=== PATIENT | female | born 1965 | race Caucasian/White ===

== ENCOUNTER 2018-07-23 13:50 | Emergency (ER) | payer SELFPAY ==
--- NOTE | 2018-07-23 15:16 | RAD ---
RIGHT HAND 4 VIEWS: Date: 07/23/18 HISTORY: Right hand pain and swelling. FINDINGS: Joint spaces are preserved. No acute fracture, dislocation, or aggressive osseous erosions. Minimal o steophytosis. IMPRESSION: No acute osseous abnormalities are demonstrated. POS: [facility]
== END 2018-07-23 14:54 | disposition home or self-care (01) ==
LOC: ERS 13:50
DX: M65.4 Radial styloid tenosynovitis [de Quervain] (principal); E11.9 Type 2 diabetes mellitus without complications; E78.5 Hyperlipidemia, unspecified; I10 Essential (primary) hypertension; J45.909 Unspecified asthma, uncomplicated; F41.9 Anxiety disorder, unspecified; F32.9 Major depressive disorder, single episode, unspecified; Z79.4 Long term (current) use of insulin; Z79.899 Other long term (current) drug therapy

== ENCOUNTER 2020-03-11 19:00 | Outpatient (CLI) | payer BC | END 2020-03-11 19:01 | disposition home or self-care (01) | LOC: SLEEPLAB 19:00 | PROVIDERS: ATTEND Family Medicine | DX: G47.33 Obstructive sleep apnea (adult) (pediatric) (principal); I10 Essential (primary) hypertension; E11.9 Type 2 diabetes mellitus without complications | CPT/HCPCS: 95811 ==

== ENCOUNTER 2020-05-15 08:00 | Outpatient (CLI) | payer BC, OTHER ==
[2020-05-15 16:25] LABS: #Lymphocytes 2.3 thou/uL (1.20-3.40); #Monocytes 0.4 thou/uL (0.11-0.59); #Neutrophils 4.2 thou/uL (1.40-6.50); %Basophils 0.5 % (0.0-1.0); %Eosinophils 0.7 % (0.0-10.0); %Monocytes 6.3 % (0.0-10.0); %Neutrophils 59.5 % (42.0-75.0); Mean Corpuscular HGB CONC 34.6 g/dL (32.0-36.0); Mean Corpuscular Hemoglobin 30.5 pg (27.0-31.0); Mean Corpuscular Volume 88.1 fL (78.0-98.0); Mean Platelet Volume 7.5 fL (7.4-10.4); Platelet Count 151 thou/uL (130-400); RBC Distribution Width 12.2 % (11.5-14.5); Red Blood Cell (RBC) Count 4.28 mill/uL (4.20-5.40); White Blood Cell (WBC) Count 7.1 thou/uL (4.8-10.8)
[2020-05-15 16:47] LABS: Anion Gap 14 mmol/L (10-20); BUN (Urea Nitrogen) 13 mg/dL (9.8-20.1); Calc. Creatinine Clearance 0 mL/min (70-130); Calcium 9.2 mg/dL (7.8-10.44); Carbon Dioxide 27 mmol/L (22-29); Chloride 104 mmol/L (98-107); Estimated GFR-MDRD Greater than 90; Glucose 101 mg/dL (70-105); Potassium 4.1 mmol/L (3.5-5.1); Sodium 141 mmol/L (136-145)
[2020-05-16 14:15] LABS: SARS-CoV-2 MS2 Positive; SARS-CoV-2 N Gene Negative; SARS-CoV-2 S Gene Negative; SARS-CoV-2 by NAA Not Detected (NotDetected); SARS-CoV-2 orf1ab Negative
== END 2020-05-15 08:01 | disposition home or self-care (01) ==
LOC: LABBT 08:00
PROVIDERS: ATTEND Surgery
DX: Z01.812 Encounter for preprocedural laboratory examination (principal); Z11.59 Encounter for screening for other viral diseases; K42.9 Umbilical hernia without obstruction or gangrene
CPT/HCPCS: 80048; 85025; 87635; U0003

== ENCOUNTER 2022-03-30 14:22 | Emergency (ER) | payer BC ==
[~2022-03-30 14:22] MED LIST: ISOVUE-370 76%-LOCM 1 ML ONE
[2022-03-30 15:33] LABS: #Lymphocytes 2.9 thou/uL (1.20-3.40); #Monocytes 0.6 thou/uL (0.11-0.59); %Basophils 0.4 % (0.0-1.0); %Eosinophils 0.4 % (0.0-10.0); %Lymphocytes 33.7 % (21.0-51.0); %Neutrophils 58.6 % (42.0-75.0); Mean Corpuscular Hemoglobin 31.7 pg (27.0-31.0); Mean Corpuscular Volume 90.5 fL (78.0-98.0); Mean Platelet Volume 7.3 fL (7.4-10.4); Platelet Count 180 thou/uL (130-400); RBC Distribution Width 13.5 % (11.5-14.5); Red Blood Cell (RBC) Count 3.78 mill/uL (4.20-5.40); White Blood Cell (WBC) Count 8.6 thou/uL (4.8-10.8)
[2022-03-30 15:52] LABS: ALT (SGPT) 21 U/L (8-55); AST (SGOT) 13 U/L (5-34); Albumin 4.1 g/dL (3.5-5.0); Alkaline Phosphatase 70 U/L (40-110); Anion Gap 13 mmol/L (10-20); BUN (Urea Nitrogen) 14 mg/dL (9.8-20.1); Bilirubin, Total 0.7 mg/dL (0.2-1.2); Calc. Creatinine Clearance 0 mL/min (70-130); Calcium 9.5 mg/dL (7.8-10.44); Carbon Dioxide 26 mmol/L (22-29); Chloride 106 mmol/L (98-107); Globulin 2.7 g/dL (2.4-3.5); Glucose 125 mg/dL (70-105); Lipase 32 U/L (8-78); Potassium 3.4 mmol/L (3.5-5.1); Protein, Total 6.8 g/dL (6.0-8.3); Sodium 142 mmol/L (136-145)
[2022-03-30] MEDS ORDERED: Pantoprazole 40 MG VIAL ONE (17:04)
[2022-03-30] MEDS ORDERED: Famotidine 20 MG TAB ONE ×2 (17:04→17:14)
== END 2022-03-30 19:00 | disposition home or self-care (01) ==
LOC: ERS 14:22
DX: R13.10 Dysphagia, unspecified (principal); R10.13 Epigastric pain; R00.1 Bradycardia, unspecified; I10 Essential (primary) hypertension; E11.9 Type 2 diabetes mellitus without complications; E78.5 Hyperlipidemia, unspecified; J45.909 Unspecified asthma, uncomplicated; G47.30 Sleep apnea, unspecified; Z79.84 Long term (current) use of oral hypoglycemic drugs; Z79.899 Other long term (current) drug therapy
CPT/HCPCS: 36415; 71045; 74177; 80053; 83690; 84484; 85025; 93005; 96374; C9113; Q9966

== ENCOUNTER 2022-11-25 12:06 | Emergency (ER) | payer BC ==
[2022-11-25 12:39] LABS: #Eosinphils 0.1 thou/uL (0.0-0.7); #Lymphocytes 1.8 thou/uL (1.20-3.40); #Monocytes 0.4 thou/uL (0.11-0.59); #Neutrophils 3.7 thou/uL (1.40-6.50); %Basophils 0.5 % (0.0-1.0); %Eosinophils 1.7 % (0.0-10.0); %Lymphocytes 30.6 % (21.0-51.0); %Monocytes 6.1 % (0.0-10.0); %Neutrophils 61.1 % (42.0-75.0); Hemoglobin 12.6 g/dL (12.0-16.0); Mean Corpuscular HGB CONC 34.4 g/dL (32.0-36.0); Mean Corpuscular Hemoglobin 30.4 pg (27.0-31.0); Mean Corpuscular Volume 88.5 fl (78.0-98.0); Mean Platelet Volume 7.6 fL (7.4-10.4); Platelet Count 182 10x3/uL (130-400); RBC Distribution Width 12.9 % (11.5-14.5); Red Blood Cell (RBC) Count 4.16 mill/uL (4.20-5.40)
[2022-11-25 12:54] LABS: ALT (SGPT) 19 U/L (8-55); AST (SGOT) 15 U/L (5-34); Albumin 4.2 g/dL (3.5-5.0); Alkaline Phosphatase 75 U/L (40-110); Anion Gap 15 mmol/L (10-20); BUN (Urea Nitrogen) 11 mg/dL (9.8-20.1); Calc. Creatinine Clearance 0 mL/min (70-130); Calcium 9.5 mg/dL (7.8-10.44); Carbon Dioxide 28 mmol/L (22-29); Chloride 101 mmol/L (98-107); Estimated GFR 92; Glucose 208 mg/dL (70-105); Lipase 35 U/L (8-78); Potassium 3.6 mmol/L (3.5-5.1); Protein, Total 7.2 g/dL (6.0-8.3); Sodium 140 mmol/L (136-145)
[2022-11-25 17:54] LABS: SARS-CoV-2 NAA Rapid Test Not Detected (NotDetected)
== END 2022-11-25 16:15 | disposition home or self-care (01) ==
LOC: ERS 12:06
DX: R42 Dizziness and giddiness (principal); E11.9 Type 2 diabetes mellitus without complications; E78.5 Hyperlipidemia, unspecified; Z79.84 Long term (current) use of oral hypoglycemic drugs; Z79.899 Other long term (current) drug therapy; Z20.822 Contact with and (suspected) exposure to COVID-19
CPT/HCPCS: 36415; 70450; 71045; 72125; 80053; 83690; 84484; 85025; 93005

== ENCOUNTER 2023-01-25 13:30 | Emergency (ER) | payer BC | END 2023-01-25 14:28 | disposition home or self-care (01) | LOC: ERS 13:30 | DX: J01.90 Acute sinusitis, unspecified (principal); E11.9 Type 2 diabetes mellitus without complications; E78.5 Hyperlipidemia, unspecified; I10 Essential (primary) hypertension; Z79.84 Long term (current) use of oral hypoglycemic drugs; Z79.899 Other long term (current) drug therapy | CPT/HCPCS: 99283 ==

== ENCOUNTER 2023-02-25 15:55 | Emergency (ER) | payer BC ==
[~2023-02-25 15:55] MED LIST changes: -ISOVUE-370 76%-LOCM 1 ML ONE; +Iopamidol-370 76% 500 ML MDV (1 ML CHARGE) ONE
[2023-02-25 18:18] LABS: #Monocytes 0.4 thou/uL (0.11-0.59); #Neutrophils 3.7 thou/uL (1.40-6.50); %Basophils 0.6 % (0.0-1.0); %Eosinophils 0.6 % (0.0-10.0); %Monocytes 6.4 % (0.0-10.0); %Neutrophils 57.9 % (42.0-75.0); Hemoglobin 12.4 g/dL (12.0-16.0); Mean Corpuscular Hemoglobin 28.9 pg (27.0-31.0); Mean Corpuscular Volume 85.1 fl (78.0-98.0); Mean Platelet Volume 9.4 fL (7.4-10.4); Platelet Count 165 10x3/uL (130-400); RBC Distribution Width 13.3 % (11.5-14.5); Red Blood Cell (RBC) Count 4.29 mill/uL (4.20-5.40); White Blood Cell (WBC) Count 6.4 10x3/uL (4.8-10.8)
[2023-02-25 18:40] LABS: ALT (SGPT) 28 U/L (8-55); AST (SGOT) 19 U/L (5-34); Albumin 4.5 g/dL (3.5-5.0); Alkaline Phosphatase 76 U/L (40-110); Anion Gap 12 mmol/L (10-20); BUN (Urea Nitrogen) 11 mg/dL (9.8-20.1); Bilirubin, Total 0.7 mg/dL (0.2-1.2); Calc. Creatinine Clearance 0 mL/min (70-130); Carbon Dioxide 29 mmol/L (22-29); Chloride 103 mmol/L (98-107); Estimated GFR 90; Glucose 159 mg/dL (70-105); Lipase 26 U/L (8-78); Potassium 3.3 mmol/L (3.5-5.1); Protein, Total 7.5 g/dL (6.0-8.3); Sodium 141 mmol/L (136-145)
[2023-02-25 19:32] LABS: Bilirubin Negative (Negative); Blood, Urine Negative (Negative); Clarity Clear (Clear); Glucose, Urine (Dipstick) Normal (Negative); Ketone, Urine Negative (Negative); Leukocyte 500 Leu/uL (Negative); Mucous/LPF Rare LPF (<2+); Nitrite Negative (Negative); Protein, Urine (Dipstick) Negative (Neg-Trace); RBC/HPF 0-3 HPF (0-3); Specific Gravity, Urine 1.045 (1.002-1.036); Squamous Epithelial 0-3 HPF (0-3); pH, Urine 6.5 (5.0-9.0)
[2023-02-25 19:33] LABS: Bacteria/HPF 1+ HPF (None Seen)
== END 2023-02-25 20:20 | disposition home or self-care (01) ==
LOC: ERS 15:55
DX: N39.0 Urinary tract infection, site not specified (principal); E11.9 Type 2 diabetes mellitus without complications; E78.5 Hyperlipidemia, unspecified; I10 Essential (primary) hypertension; K21.9 Gastro-esophageal reflux disease without esophagitis; Z79.899 Other long term (current) drug therapy; Z79.84 Long term (current) use of oral hypoglycemic drugs
CPT/HCPCS: 74177; 80053; 81003; 81015; 83690; 84484; 85025; 93005; Q9967

== ENCOUNTER 2023-06-23 11:20 | Inpatient (IN) | payer BC, OTHER ==
[2023-06-23 12:05] LABS: #Eosinphils 0.1 thou/uL (0.0-0.7); #Monocytes 0.4 thou/uL (0.11-0.59); %Basophils 0.3 % (0.0-1.0); %Eosinophils 0.9 % (0.0-10.0); %Lymphocytes 21.8 % (21.0-51.0); %Monocytes 6.9 % (0.0-10.0); %Neutrophils 69.4 % (42.0-75.0); Hematocrit 36.8 % (36.0-47.0); Hemoglobin 12.2 g/dL (12.0-16.0); Mean Corpuscular HGB CONC 33.2 g/dL (32.0-36.0); Mean Corpuscular Hemoglobin 29.3 pg (27.0-31.0); Mean Corpuscular Volume 88.2 fl (78.0-98.0); Mean Platelet Volume 9.4 fL (7.4-10.4); Platelet Count 145 10x3/uL (130-400); RBC Distribution Width 14.5 % (11.5-14.5); Red Blood Cell (RBC) Count 4.17 mill/uL (4.20-5.40); White Blood Cell (WBC) Count 5.8 10x3/uL (4.8-10.8)
[2023-06-23 12:20] LABS: ALT (SGPT) 24 U/L (8-55); AST (SGOT) 19 U/L (5-34); Albumin 4.3 g/dL (3.5-5.0); Alkaline Phosphatase 67 U/L (40-110); Anion Gap 13 mmol/L (10-20); BUN (Urea Nitrogen) 10 mg/dL (9.8-20.1); Bilirubin, Total 0.5 mg/dL (0.2-1.2); Calc. Creatinine Clearance 0 mL/min (70-130); Calcium 9.3 mg/dL (7.8-10.44); Carbon Dioxide 29 mmol/L (22-29); Chloride 102 mmol/L (98-107); Estimated GFR 101; Globulin 2.6 g/dL (2.4-3.5); Glucose 162 mg/dL (70-105); Potassium 3.9 mmol/L (3.5-5.1); Protein, Total 6.9 g/dL (6.0-8.3); Sodium 140 mmol/L (136-145)
[2023-06-23] MEDS ORDERED: Aspirin Chewable 81 MG TAB ONE (12:30)
[2023-06-23 12:36] LABS: Troponin I Less than 0.010 ng/mL (< 0.028)
[2023-06-23 13:30] LABS: SARS-CoV-2 NAA Rapid Test Not Detected (NotDetected)
[2023-06-23] MEDS ORDERED: Calcium Carbonate 500 MG ChewTAB PO PRN (15:45)
[2023-06-23] MEDS ORDERED: hydrALAZINE 20 MG/ML VIAL SLOW IVP PRN (15:45)
[2023-06-23] MEDS ORDERED: Ondansetron PF 4 MG/2 ML Vial IVP PRN (15:45)
[2023-06-23] MEDS ORDERED: Senokot S 8.6-50 MG TAB PO PRN (15:45)
[2023-06-23] MEDS ORDERED: Dextrose 50% Abboject 50 ML SYRINGE SLOW IVP PRN (15:52)
[2023-06-23] MEDS ORDERED: Dextrose 5% in Water 1,000 ML IV PRN (15:52)
[2023-06-23] MEDS ORDERED: HumaLOG 300 UNITS/3 ML VIAL SC PRN (15:52)
[2023-06-23] MEDS ORDERED: Glucagon 1 MG/ML KIT IM PRN (15:52)
[2023-06-23 16:07] LABS: Troponin I Less than 0.010 ng/mL (< 0.028)
[2023-06-23] MEDS ORDERED: LORazepam 2 MG/ML SYR.(CARPUJECT) ONE (16:16)
[2023-06-23 16:48] LABS: Bacteria/HPF 1+ HPF (None Seen); Bilirubin Negative (Negative); Blood, Urine 1+ (Negative); CAUTI Indications for Culture Dysuria,urgency,freq; Clarity Extra Turbid (Clear); Glucose, Urine (Dipstick) Normal (Negative); Ketone, Urine Negative (Negative); Leukocyte 500 Leu/uL (Negative); Nitrite Negative (Negative); Protein, Urine (Dipstick) 70 mg/dL (Neg-Trace); Specific Gravity, Urine 1.027 (1.002-1.036); Squamous Epithelial 21-50 HPF (0-3); Urobilinogen Normal mg/dL (Less than 2); WBC/HPF Greater than 50 HPF (0-3); pH, Urine 6.5 (5.0-9.0)
[2023-06-23 16:50] LABS: Urine Culture Reflex Yes Yes
[2023-06-23 18:45] LABS: Troponin I Less than 0.010 ng/mL (< 0.028)
[2023-06-23 20:37] VITALS: BMI 45.2
[2023-06-23] MEDS ORDERED: Albuterol 200 PUFF (6.7GM INHALER) INH PRN (21:05)
[2023-06-23] MEDS ORDERED: traZODone HCl 50 MG TAB PO PRN (21:05)
[2023-06-23] MEDS: cefTRIAXone\\ROCEPHIN 1 GM in Sodium Chloride 0.9% 100 ML IVPB SCH (21:14)
[2023-06-23] MEDS ORDERED: DorzolamidE/Timolol 2%/0.5% Ophth Soln 10 ml Bottle EA EYE SCH (21:15)
[2023-06-23] MEDS: carBAMazepine 200 MG TAB PO SCH (21:41)
[2023-06-23] MEDS: Atorvastatin Calcium 40 MG TAB PO SCH (21:42)
[2023-06-23] MEDS: Alogliptin 25 MG TAB PO SCH (21:46)
[2023-06-24 04:49] LABS: #Eosinphils 0.1 thou/uL (0.0-0.7); #Monocytes 0.4 thou/uL (0.11-0.59); #Neutrophils 3.2 thou/uL (1.40-6.50); %Basophils 0.6 % (0.0-1.0); %Eosinophils 1.1 % (0.0-10.0); %Lymphocytes 29.8 % (21.0-51.0); %Monocytes 7.4 % (0.0-10.0); %Neutrophils 60.1 % (42.0-75.0); Hematocrit 33.6 % (36.0-47.0); Hemoglobin 11.3 g/dL (12.0-16.0); Mean Corpuscular HGB CONC 33.6 g/dL (32.0-36.0); Mean Corpuscular Hemoglobin 29.4 pg (27.0-31.0); Mean Corpuscular Volume 87.3 fl (78.0-98.0); Mean Platelet Volume 9.5 fL (7.4-10.4); Platelet Count 136 10x3/uL (130-400); RBC Distribution Width 14.6 % (11.5-14.5); Red Blood Cell (RBC) Count 3.85 mill/uL (4.20-5.40); White Blood Cell (WBC) Count 5.3 10x3/uL (4.8-10.8)
[2023-06-24 05:02] LABS: Hemoglobin A1c 6.7 % (4.0-6.0)
[2023-06-24 05:44] LABS: ALT (SGPT) 24 U/L (8-55); AST (SGOT) 16 U/L (5-34); Albumin 3.9 g/dL (3.5-5.0); Alkaline Phosphatase 61 U/L (40-110); Anion Gap 13 mmol/L (10-20); BUN (Urea Nitrogen) 10 mg/dL (9.8-20.1); Bilirubin, Total 0.7 mg/dL (0.2-1.2); Calc. Creatinine Clearance 148 mL/min (70-130); Calcium 8.9 mg/dL (7.8-10.44); Carbon Dioxide 27 mmol/L (22-29); Cardiac Risk 7.1 (Less than 4.5); Chloride 103 mmol/L (98-107); Cholesterol 214 mg/dl (< 200 Desired); Estimated GFR 93; Globulin 2.6 g/dL (2.4-3.5); Glucose 205 mg/dL (70-105); HDL Cholesterol 30 mg/dL (>60 Neg Risk); LDL Cholesterol, Calculated 130 mg/dL; Potassium 3.6 mmol/L (3.5-5.1); Protein, Total 6.5 g/dL (6.0-8.3); Sodium 139 mmol/L (136-145); Triglycerides 269 mg/dL (Less than 150)
[2023-06-24] MEDS: DorzolamidE/Timolol 2%/0.5% Ophth Soln 10 ml Bottle EA EYE SCH ×2 (09:31→21:09)
[2023-06-24] MEDS: carBAMazepine 200 MG TAB PO SCH ×2 (09:32→21:09)
[2023-06-24] MEDS: Aspirin 81 mg Enteric Coated Tablet PO SCH (09:32)
[2023-06-24] MEDS: hydrALAZINE 25 MG TAB PO SCH ×2 (09:33→21:13)
[2023-06-24] MEDS: Venlafaxine XR 37.5 MG CAP PO SCH (09:33)
[2023-06-24] MEDS: glipiZIDE 5 MG TAB PO SCH (09:33)
[2023-06-24] MEDS: cefTRIAXone\\ROCEPHIN 1 GM in Sodium Chloride 0.9% 100 ML IVPB SCH (21:06)
[2023-06-24] MEDS: Amitriptyline HCl 25 MG TAB PO SCH (21:07)
[2023-06-24] MEDS: Amlodipine 10 MG TAB PO SCH (21:07)
[2023-06-24] MEDS: Aripiprazole 10 MG TAB PO SCH (21:08)
[2023-06-24] MEDS: Atorvastatin Calcium 40 MG TAB PO SCH (21:09)
[2023-06-24] MEDS: Alogliptin 25 MG TAB PO SCH (21:13)
[2023-06-25] MEDS: hydrALAZINE 25 MG TAB PO SCH ×2 (09:47→20:42)
[2023-06-25] MEDS: glipiZIDE 5 MG TAB PO SCH (09:48)
[2023-06-25] MEDS: Venlafaxine XR 37.5 MG CAP PO SCH (09:48)
[2023-06-25] MEDS: Aspirin 81 mg Enteric Coated Tablet PO SCH (09:49)
[2023-06-25] MEDS: carBAMazepine 200 MG TAB PO SCH ×2 (09:49→20:43)
[2023-06-25] MEDS: DorzolamidE/Timolol 2%/0.5% Ophth Soln 10 ml Bottle EA EYE SCH ×2 (09:50→20:44)
[2023-06-25] MEDS ORDERED: Lisinopril 10 MG TAB PO SCH (12:45)
[2023-06-25] MEDS: HumaLOG 300 UNITS/3 ML VIAL SC PRN (13:50)
[2023-06-25] MEDS: Amlodipine 10 MG TAB PO SCH (20:43)
[2023-06-25] MEDS: Amitriptyline HCl 25 MG TAB PO SCH (20:43)
[2023-06-25] MEDS: Atorvastatin Calcium 40 MG TAB PO SCH (20:43)
[2023-06-25] MEDS: Aripiprazole 10 MG TAB PO SCH (20:43)
[2023-06-25] MEDS: Alogliptin 25 MG TAB PO SCH (20:44)
[2023-06-25] MEDS: cefTRIAXone\\ROCEPHIN 1 GM in Sodium Chloride 0.9% 100 ML IVPB SCH (20:44)
[2023-06-26] MEDS: HumaLOG 300 UNITS/3 ML VIAL SC PRN ×2 (06:02→12:18)
[2023-06-26] MEDS ORDERED: Lisinopril 10 MG TAB PO SCH (09:00)
[2023-06-26] MEDS: glipiZIDE 5 MG TAB PO SCH (09:25)
[2023-06-26] MEDS: carBAMazepine 200 MG TAB PO SCH (09:25)
[2023-06-26] MEDS: Aspirin 81 mg Enteric Coated Tablet PO SCH (09:25)
[2023-06-26] MEDS: hydrALAZINE 25 MG TAB PO SCH (09:27)
[2023-06-26] MEDS: DorzolamidE/Timolol 2%/0.5% Ophth Soln 10 ml Bottle EA EYE SCH (10:19)
[2023-06-26] MEDS ORDERED: predniSONE 20 MG TAB PO SCH (14:30)
[2023-06-26 16:10] VITALS: BP 132/77; TEMP 98.4
[2023-06-27] MEDS ORDERED: predniSONE 20 MG TAB PO SCH (08:00)
== END 2023-06-26 17:12 | disposition home or self-care (01) | DRG 74 ==
LOC: SUATTDRO 11:20 → ERS 11:20 → ERHOLD 14:24 → 2SE 19:21 → OBSVTOIN 06-24 15:25
PROVIDERS: ADMIT Internal Medicine; ATTEND Internal Medicine
DX: G51.0 Bell's palsy (principal); G45.9 Transient cerebral ischemic attack, unspecified; G43.909 Migraine, unspecified, not intractable, without status migrainosus; I10 Essential (primary) hypertension; E11.9 Type 2 diabetes mellitus without complications; F40.240 Claustrophobia; F39 Unspecified mood [affective] disorder; E78.5 Hyperlipidemia, unspecified; Z79.51 Long term (current) use of inhaled steroids; Z79.899 Other long term (current) drug therapy; Z79.84 Long term (current) use of oral hypoglycemic drugs; Z20.822 Contact with and (suspected) exposure to COVID-19
CPT/HCPCS: 0042T; 36415; 36416; 70450; 70496; 70498; 71045; 74230; 80053; 80061; 81001; 83036; 84484; 85025; 87086; 93005; 93306; 96372; 96374; 96375; G0378; J0696; J1650; J1815; J2060; J3490; J7512; Q9967; U0002